=== PATIENT | female | born 1935 | race Caucasian/White ===

== ENCOUNTER 2017-10-08 20:55 | Emergency (ER) | payer MEDICARE, OTHER ==
--- NOTE | 2017-10-11 10:59 | ER ---
DATE SEEN: 10/08/2017 TIME SEEN: The patient was seen at 2045 hours. HISTORY OF PRESENT ILLNESS: Joyce is a pleasant 81-year-old, who has a wonderful smiling "heart face" and she has on her right fourth finger a ring that has been there for many years. She was stung on the fingertip by a wasp several hours ago. There is increasing swelling in finger. She feels like she has to take the ring off. She has been unable to move it herself. PHYSICAL EXAMINATION: EXTREMITIES: Capillary refill is intact. Sensation is intact. The ring is markedly tight on the proximal right fourth finger. A ring cutter was utilized and it was easily removed. She had relief of the mild pain and discomfort she had in the finger. Circulation is intact. HEART: S1 and S2. No murmurs. LUNGS: Clear without abnormality. ABDOMEN: Soft. Nontender. No guarding. No discomfort. EXTREMITIES: Without edema. ASSESSMENT: 1. Right fourth finger bee sting without complications. 2. Swelling of the finger. The swelling was extensive, resulting in tightness and discomfort of the ring. Ring was removed by a ring cutter. The patient is to follow up with her doctor as needed. Use ice and ibuprofen and Tylenol p.r.n. /[id number] QUITA/CHARU
== END 2017-10-08 21:25 | disposition home or self-care (01) ==
LOC: FB.ED 20:55
DX: T63.441A Toxic effect of venom of bees, accidental (unintentional), initial encounter (principal); R22.31 Localized swelling, mass and lump, right upper limb
CPT/HCPCS: 99283

== ENCOUNTER 2018-11-01 18:44 | Emergency (ER) | payer MEDICARE, OTHER ==
[2018-11-01] MEDS ORDERED: Lidocaine 1% 20 ML MDV INFILT ONE (18:45)
--- NOTE | 2018-11-01 19:19 | EDM.PDOC ---
ED HPI GENERAL MEDICAL PROBLEM - General Chief Complaint: Head Injury Stated Complaint: FALL Time Seen by Provider: 11/01/18 19:00 Source of Information: Reports: Patient History Limitations: Reports: No Limitations - History of Present Illness INITIAL COMMENTS - FREE TEXT/NARRATIVE: pt is here after accidental fall at her garage, tells me she tripped and lost her balance , falling and hitting head on ground , think she may have been nocked out for a moment, c/o facial lac and left small finger pain, denies any other injuries or any other medical concerns. 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: - Past Surgical History GI Surgical History: Reports: Appendectomy, Cholecystectomy Social & Family History - Family History Family Medical History: Noncontributory - Tobacco Use Smoking Status *Q: Never Smoker - Caffeine Use Caffeine Use: Reports: Coffee - Recreational Drug Use Recreational Drug Use: No ED ROS GENERAL - Review of Systems Review Of Systems: See Below Constitutional: Reports: No Symptoms HEENT: Reports: No Symptoms Respiratory: Reports: No Symptoms Cardiovascular: Reports: No Symptoms GI/Abdominal: Reports: No Symptoms ED EXAM, HEAD INJURY - Physical Exam Exam: See Below Exam Limited By: No Limitations General Appearance: Alert, No Apparent Distress Head: Facial Lacerations (2 cam lac at left eyebrow , clean, no active bleeding. ) Eyes: Bilateral Eye: Conjunctival Injection, PERRL Ears: Normal Canal Throat/Mouth: Normal Inspection Neck: Non-Tender, Full Range of Motion Respiratory: No Respiratory Distress, Lungs Clear, Normal Breath Sounds Cardiovascular: Normal Peripheral Pulses, Regular Rate, Rhythm Back Exam: Normal Inspection Extremities: Other (tender at left fifht finger , no deformities, ROM is full. ) ED LACERATION/WOUND & ALLEY PROC - Laceration/Wound Repair Left Upper Lateral Forehead Appearance: Subcutaneous, Clean Anesthetic Type: Local Local Anesthesia - Lidocaine (Xylocaine): 1% Plain Local Anesthetic Volume: 2cc Exploration/Debridement/Repair: Wound Explored Closed with: Sutures Suture Size: 3-0 # of Sutures: 3 Suture Type: Nylon Progress/Comments: pt tolerated procedure well. Course - Vital Signs Text/Narrative:: head CT and xray of left fifth finger results were explained to pt . a finger splint was applied and facial laceration was repaired. usual wound care was explained and supportive mng for finger fracture. Last Recorded V/S: Last Vital Signs Temp 36.8 C 11/01/18 19:00 Pulse 72 11/01/18 19:00 Resp 18 11/01/18 19:00 BP 156/87 H 11/01/18 19:00 Pulse Ox 98 11/01/18 19:00 - Orders/Labs/Meds Orders: Active Orders 24 hr Category Date Time Status Fingers Fifth Digit Lt F4 [CR] Stat Exams 11/01/18 19:08 Ordered Head wo Cont [CT] Stat Exams 11/01/18 18:58 Ordered Departure - Departure Time of Disposition: 20:41 Disposition: Home, Self-Care 01 Clinical Impression: Facial laceration - Discharge Information Instructions: Finger Fracture, Adult, [id number], Laceration Care, Adult Referrals: Arjun Ocampo MD [Primary Care Provider] - Forms: ED Department Discharge - My Orders Last 24 Hours: My Active Orders 11/01/18 18:58 Head wo Cont [CT] Stat 11/01/18 19:08 Fingers Fifth Digit Lt F4 [CR] Stat - Assessment/Plan Last 24 Hours: My Active Orders 11/01/18 18:58 Head wo Cont [CT] Stat 11/01/18 19:08 Fingers Fifth Digit Lt F4 [CR] Stat
--- NOTE | 2018-11-02 09:46 | CR ---
INDICATION: Fall, pain. LEFT FIFTH FINGER: Four images of the left fifth finger in three projections revealed an oblique fracture through the mid to distal shaft and metaphysis of the fifth metacarpal in good position and alignment. Degenerative changes of moderate degree are noted at the DIPJ and PIPJ of the fifth finger. Suggestion of mild demineralization raises question of osteoporosis - correlate clinically. MTDD
--- NOTE | 2018-11-02 11:06 | CT ---
INDICATION: Fall, brief loss of consciousness, abrasion near left eyebrow. CT HEAD WITHOUT CONTRAST: Spiral 3.75 mm axial images of the brain were obtained with sagittal and coronal reconstructions, 11/01/18 - no comparisons. Total exam DLP = 1,270.76 mGy-cm. Mild to moderate degenerative changes are noted at the atlantoodontoid joint. Mastoid air cells and paranasal sinuses appear to be well-aerated. The orbits appear to be intact. Nasal septal deviation to the right is mild. Calcifications are noted in the internal carotid arteries. The ventricles are prominent with asymmetry of prominence of the lateral ventricles, most likely on the basis of central atrophy. The right lateral ventricle is more prominent than the left with a minimal shift to the left of the midline structures at the lateral ventricles in the body area. No specific etiology for the shift is seen, and it likely is developmental. Periventricular decreased densities suggest a mild degree of microvascular disease. No other abnormal areas of density were identified, except for question of a lacunar infarct at the basal ganglia on the right. No bleeding site or hematoma was suggested. IMPRESSION: 1. No definite acute intracranial abnormalities. 2. Central atrophy with some asymmetry, likely developmental. 3. Microvascular disease type changes, although other cause of leukoencephalopathy cannot be excluded. These are of mild degree. These are associated with calcifications in the internal carotid arteries. 4. No evidence of a cranial fracture site or hematoma. 5. Degenerative changes at the atlantoodontoid joint of mild to moderate degree. Report was called to Dr. Mcallister at 2012 hours on 11/01/18. [facility]
== END 2018-11-01 20:50 | disposition home or self-care (01) ==
LOC: FB.ED 18:44
DX: S62.637A Displaced fracture of distal phalanx of left little finger, initial encounter for closed fracture (principal); S01.112A Laceration without foreign body of left eyelid and periocular area, initial encounter; M79.645 Pain in left finger(s); Z88.5 Allergy status to narcotic agent; Z79.82 Long term (current) use of aspirin; W18.39XA Other fall on same level, initial encounter; Y92.094 Garage of other non-institutional residence as the place of occurrence of the external cause
CPT/HCPCS: 12011; 29130; 70450; 73140; 99283; J2001

== ENCOUNTER 2021-10-11 02:36 | Emergency (ER) | payer MEDICARE, OTHER ==
[2021-10-11] MEDS ORDERED: Sodium Chloride 0.9% 10 ML Syringe FLUSH PRN (02:47)
[2021-10-11] MEDS ORDERED: Ondansetron 4 MG/2 ML SDV IVPUSH ONE (02:47)
[2021-10-11] MEDS ORDERED: Aspirin 81 MG Tab.Chew PO STA (02:50)
[2021-10-11] MEDS ORDERED: Morphine 4 MG/ML VIAL IVPUSH ONE (02:50)
[2021-10-11] MEDS ORDERED: Nitroglycerin 0.4 MG Tab.SL SL PRN (02:52)
[2021-10-11] MEDS ORDERED: Heparin Sodium 5,000 Units/ML Vial SUBCUT ONE (03:07)
[2021-10-11] MEDS ORDERED: Heparin Sodium/0.45% NaCl 500 ML IV SCH (03:08)
[2021-10-11 03:09] LABS: ESTIMATED GFR 63 mL/min (>60)
[2021-10-11] MEDS ORDERED: Heparin Sodium 5,000 Units/ML Vial ONE (03:10)
[2021-10-11] MEDS ORDERED: Metoprolol Tartrate 5 MG/5 ML SDV ONE (03:11)
[2021-10-11] MEDS ORDERED: Heparin Sodium 5,000 Units/ML Vial IVPUSH ONE (03:15)
[2021-10-11] MEDS ORDERED: Metoprolol Tartrate 5 MG/5 ML SDV IVPUSH ONE (03:22)
[2021-10-11] MEDS ORDERED: Nitroglycerin/D5W 25 MG/250 ML BOTTLE IV SCH (03:30)
[2021-10-11] MEDS ORDERED: Sodium Chloride 0.9% 250 ML IV ONE (03:42)
[2021-10-11] MEDS ORDERED: Morphine 2 MG/ML SYRINGE ONE (03:49)
[2021-10-11] MEDS ORDERED: Morphine 2 MG/ML SYRINGE IVPUSH ONE (07:45)
== END 2021-10-11 03:55 ==
LOC: FB.ED 02:36
DX: I21.3 ST elevation (STEMI) myocardial infarction of unspecified site (principal); Z88.5 Allergy status to narcotic agent
CPT/HCPCS: 36415; 71045; 80053; 83880; 84484; 85025; 85610; 85730; 93005; 96365; 96368; 96375; 96376; 99285; A9270; J1644; J2270; J2405; J3490; J7030

== ENCOUNTER 2022-03-13 05:35 | Emergency (ER) | payer MEDICARE, OTHER ==
[2022-03-13] MEDS ORDERED: Sodium Chloride 0.9% 10 ML Syringe FLUSH PRN (06:00)
[2022-03-13] MEDS ORDERED: Ondansetron 4 MG/2 ML SDV IVPUSH ONE (06:07)
[2022-03-13] MEDS ORDERED: Sodium Chloride 0.9% 1,000 ML IV SCH (06:15)
[2022-03-13 06:19] LABS: ESTIMATED GFR 72 mL/min (>60)
== END 2022-03-13 11:06 | disposition home or self-care (01) ==
LOC: FB.ED 05:35
DX: I11.0 Hypertensive heart disease with heart failure (principal); I50.9 Heart failure, unspecified; I21.3 ST elevation (STEMI) myocardial infarction of unspecified site; I25.10 Atherosclerotic heart disease of native coronary artery without angina pectoris; E78.00 Pure hypercholesterolemia, unspecified; I10 Essential (primary) hypertension; Z88.5 Allergy status to narcotic agent; Z79.82 Long term (current) use of aspirin; Z79.899 Other long term (current) drug therapy; Z90.49 Acquired absence of other specified parts of digestive tract
CPT/HCPCS: 36415; 71045; 80053; 83880; 84484; 85025; 85610; 85730; 93005; 96361; 96374; 99285-25; J2405; J3490; J7030

== ENCOUNTER 2022-11-19 12:53 | Emergency (ER) | payer MEDICARE, OTHER ==
[2022-11-19 14:01] LABS: BASOPHILS PERCENT AUTO 0.6 % (0.2-1.5); EOSINOPHILS ABSOLUTE AUTO 0.1 x10-3/uL (0.0-0.8); HEMATOCRIT 39.2 % (34.2-48.2); HEMOGLOBIN 13.2 g/dL (11.4-15.5); LYMPHOCYTES ABSOLUTE AUTO 0.6 x10-3/uL (1.0-4.4); MEAN CORPUSCULAR HEMOGLOBIN 31.5 pg (23.9-33.9); MEAN CORPUSCULAR HGB CONC 33.6 g/dL (31.9-34.8); MEAN CORPUSCULAR VOLUME 93.8 fL (76.7-100.5); MEAN PLATELET VOLUME 7.4 fL (7.1-12.4); MONOCYTES ABSOLUTE AUTO 0.2 x10-3/uL (0.3-1.0); MONOCYTES PERCENT AUTO 5.3 % (4.4-15.7); NEUTROPHILS ABSOLUTE AUTO 2.8 x10-3/uL (1.5-6.3); NEUTROPHILS PERCENT AUTO 74.1 % (30.8-76.2); PLATELET COUNT,PLT 195 x10(3)uL (151-488); RED BLOOD CELL COUNT 4.18 x10(6)uL (3.60-5.20); RED CELL DISTRIBUTION WIDTH 15.4 % (12.3-16.5); WHITE BLOOD CELL COUNT,WBC 3.8 x10-3/uL (3.0-10.3)
[2022-11-19 14:02] LABS: BLOOD UREA NITROGEN,BUN 12 mg/dL (7-18); BUN/CREATININE RATIO 13.3 (9-20); CALCIUM 9.2 mg/dL (8.6-10.2); CARBON DIOXIDE,CO2 31 mmol/L (21-32); CHLORIDE,CL 102 mmol/L (100-110); CREATININE 0.9 mg/dL (0.55-1.02); ESTIMATED GFR 62 mL/min (>60); GLUCOSE RANDOM 111 mg/dL (80-116); POTASSIUM,K 3.9 mmol/L (3.5-5.3); SODIUM,NA 140 mmol/L (135-145)
[2022-11-19 14:08] LABS: ALANINE AMINOTRANSFERASE,ALT 23 U/L (12-36); ALBUMIN 3.7 g/dL (3.2-4.6); ALKALINE PHOSPHATASE 57 IU/L (56-112); ASPARTATE AMNIOTRANSFERASE,AST 29 IU/L (5-25); BILIRUBIN TOTAL 0.8 mg/dL (0.1-1.3); PROTEIN TOTAL,TP 7.5 g/dL (6.0-8.0)
[2022-11-19 14:15] LABS: TROPONIN I 25.4 pg/mL (4.0-60.3)
[2022-11-19] MEDS ORDERED: Meclizine 25 MG Tab PO ONE (16:01)
== END 2022-11-19 17:25 | disposition home or self-care (01) ==
LOC: FB.ED 12:53
DX: R42 Dizziness and giddiness (principal); I25.10 Atherosclerotic heart disease of native coronary artery without angina pectoris; I11.0 Hypertensive heart disease with heart failure; I50.9 Heart failure, unspecified; I25.2 Old myocardial infarction; E78.00 Pure hypercholesterolemia, unspecified; M19.90 Unspecified osteoarthritis, unspecified site; Z95.0 Presence of cardiac pacemaker; Z95.5 Presence of coronary angioplasty implant and graft; Z79.82 Long term (current) use of aspirin; Z79.899 Other long term (current) drug therapy; Z88.5 Allergy status to narcotic agent
CPT/HCPCS: 36415; 70450; 71045; 80053; 83880; 84484; 85025; 93005; 99284; A9270-GY